=== PATIENT | male | born 1990 | race Hispanic/Latino ===

== ENCOUNTER 2025-06-21 08:00 | Day surgery (SDC) | payer OTHER ==
[~2025-06-21] VITALS: Ht 177.8 cm; Wt 112.0 kg
[2025-06-21] VITALS (11 sets, daily range): BP systolic 133–150; BP diastolic 73–91; PULSE 55–81; RESP 14–18; TEMP 97.5–97.9
[~2025-06-21 08:00] MED LIST: LOSA25TA41 PO; OMEG100014 PO
[2025-06-21] MEDS ORDERED: 0.9%NACL 1000ML 1,000 ML IV ONE (08:23)
== END 2025-06-21 11:16 | disposition home or self-care (01) ==
LOC: DAH 08:00 → ENDO 08:00
PROVIDERS: ATTEND Internal Medicine Gastroenterology
DX: K86.1 Other chronic pancreatitis (principal); K31.89 Other diseases of stomach and duodenum; K29.50 Unspecified chronic gastritis without bleeding; R13.10 Dysphagia, unspecified; K76.0 Fatty (change of) liver, not elsewhere classified; I10 Essential (primary) hypertension; G40.909 Epilepsy, unspecified, not intractable, without status epilepticus; R07.0 Pain in throat; Z79.899 Other long term (current) drug therapy
CPT/HCPCS: 43259; 43239; J7030; J2704 ×3; A4620; A4215; 43237; J3490